=== PATIENT | male | born 1955 | race Caucasian/White ===

== ENCOUNTER 2017-03-14 18:14 | Inpatient (IN) | payer BC ==
--- NOTE | ~2017-03-14 | DS ---
Unit #: [id number] #: [id number] Patient: RACHEL PAEZ [id number] [facility] [address]. [place], [place] [address] [id number] I MR#: [id number] NAME: RACHEL PAEZ ROOM: 549 Age: 61 Sex: M Admission Date: 03/14/2017 : 1955 Discharge Date: 03/18/2017 Attending Physician: Lesa Bernard M.D. Primary Care Physician: Binh Brown M.D. DISCHARGE SUMMARY REASON FOR ADMISSION Status epilepticus. HISTORY OF PRESENT ILLNESS/HOSPITAL COURSE Patient is a 61-year-old male who originally was admitted secondary to continuous seizure [facility]. He was subsequently transferred to [facility] where he was evaluated in the emergency room. He was appropriately treated. The seizure activity ceased and, subsequently, he was placed in the ICU for observation. Consultation was placed with the water chemist who followed patient through hospital course as well as to Dr. Bunn of neurology services. Secondary to prior history of ischemic cardiomyopathy, AICD, as well as ejection fraction noted to be approximately 10%; consultation was also placed to Dr. Acosta of cardiology services. In regards to patient's seizure activity, patient was placed on IV Keppra as well as IV Vimpat while here. These medications will be transitioned to p.o. medications at time of discharge. Review will be currently underway by Dr. Bunn later this morning. In consideration of patient's prior history of systolic heart failure and ejection fraction near 10%, initially he was placed on dobutamine secondary to volume overload. Dr. Acosta continued to follow the patient while in the ICU and subsequently was transitioned to p.o. medications. Please see below for complete details. He has been cleared from a cardiac standpoint for discharge. Overall, this patient's prognosis is poor. His chance of readmission is significantly elevated. He does have a history of end stage cardiomyopathy as well as a history of end stage dementia. Please note, patient did develop ascites. He does have a prior history of cirrhosis as well as end stage liver disease secondary to alcohol abuse. He did undergo paracentesis this hospital admission and approximately 4.3 liters removed. His medications have been adjusted. Please see below for details. FINAL DISCHARGE DIAGNOSES 1. Status epilepticus. 2. Prior history of seizure disorder. 3. Cerebrovascular accident history. 4. Systolic heart failure. 5. Ischemic cardiomyopathy. Unit #: [id number] #: [id number] Patient: RACHEL PAEZ 6. Biventricular heart failure with ejection fraction noted 10%. 7. Status post automatic implantable cardioverter-defibrillator placement in past. 8. Hemiparesis secondary to cerebrovascular accident. 9. Do not resuscitate status noted. 10. Ascites, status post paracentesis. 11. Coronary artery disease, status post stent to left anterior descending, February of 2013. 12. History of paroxysmal atrial fibrillation. DISCHARGE MEDICATIONS 1. Lipitor 80 mg p.o. q.h.s. 2. Keppra 10 mL p.o. b.i.d. 3. Coumadin 3 mg p.o. every day. 4. Digoxin 0.125 mg p.o. every day. 5. Bumex 2 mg p.o. b.i.d. 6. Lisinopril 10 mg p.o. q.h.s. 7. Multivitamin daily. 8. Melatonin 3 mg p.o. q.h.s. 9. Aspirin 81 mg p.o. every day. 10. Aldactone 25 mg p.o. b.i.d. 11. Protonix 40 mg p.o. every day. DISCHARGE CONDITION Stable. DISCHARGE DISPOSITION FDC. PROGNOSIS Long-term prognosis of this patient is poor. Chance for readmission significantly elevated. Dictated by... Cam Jones/maren TD: 03/18/2017 10:41 JOB #: [id number] DISCHARGE SUMMARY Page 1 of 1 X Lesa Bernard MD X DISCHARGE SUMMARY
--- NOTE | ~2017-03-14 | CO ---
Unit #: [id number] #: [id number] Patient: RACHEL GUEVARA [id number] [facility] [address] [facility]. [place], [place] [address] [id number] I MR#: [id number] NAME: RACHEL GUEVARA ROOM: CICCU2 Age: 61 Sex: M Admission Date: 03/14/2017 : 1955 Attending Physician: Romario Jimenez M.D. Primary Care Physician: Binh Brown M.D. Consultation Date: 03/15/2017 CONSULTATION REPORT REASON FOR CONSULTATION History of ischemic cardiomyopathy. HISTORY OF PRESENT ILLNESS This is a 61-year-old, white male with history of having paroxysmal atrial fibrillation, he has been on Coumadin, and coronary artery disease. Had a IA back in 2013 and found occlusion of the distal portion of the ramus intermedius, medical management, and prior to that had a drug-eluting stent placed in the LAD back in 2012. Patient's last echo done in Dr. Davalos's office showed a LV EF of 5% to 10% and his previous LV EF was 10% to 15%. He also has moderate tricuspid regurgitation and moderate pulmonary artery hypertension. He does have a defibrillator. He is a diabetic and hypertension. He had a paracentesis last July. He has a history of seizures and a history of right MCA stroke, which he had some left-sided weakness. Patient is residing in a [facility]. He was brought in by EMS after they were called due to the patient being in status epilepticus. Patient is a poor historian due to his stroke and his condition. According to information, he had been approximately in 30-40 minutes of continuous seizure activity as well as a prolonged seizure activity here in the emergency room. Patient received several medications including IV Keppra and Vimpat as well as Versed. Right now, the patient is somnolent, but he does open his eyes and has with tactile stimulation. Patient was here at [facility] the last time in December 2015. At that point, he was discharged home. I am not sure of the details of why he lives in a chcf. There is no indication of the patient having any signs or symptoms of unstable angina. Cardiology was consulted to assist with management since he has ischemic cardiomyopathy and has chronic systolic congestive heart failure. I just got some information that reports that back in January of this year, the patient had a recurrent stroke and was found by the family poorly responsive. He went to [facility] and was discharged from there to the [facility]. PAST MEDICAL HISTORY 1. Paroxysmal atrial fibrillation. 2. History of DC cardioversion, 02/2014, and history of radiofrequency ablation. 3. Coronary artery disease, status post PCI and stent of the LAD in 02/2013. Last cardiac cath, March 2014, with a non-ST elevation IA showed the left main had 20% stenosis, LAD stent was widely patent with diffuse disease distal to the stent, left circumflex artery 70% stenosis, ramus intermedius branch had a 100% distal with diffuse disease up to 20% proximal and in midvessel, RCA ostial 20% stenosis, Unit #: [id number] #: [id number] Patient: RACHEL GUEVARA in the mid RCA 40% stenosis with ejection fraction of 10% to 15%. The cardiac catheterization was performed by Dr. Gr at [facility] and recommendation was to be on medical therapy. 4. November 2015, transesophageal echocardiogram. Ejection fraction found to be less than 10%, mild mitral regurgitation, mild tricuspid regurgitation, and elevated RVSP 44 mmHg. 5. Last 2D echo with Dr. Davalos's office, 07/2016, showed LV EF of 5% to 10% (previous echo showed 10% to 15%), moderate tricuspid regurgitation, mild pulmonic regurgitation with severely dilated right ventricle, mild mitral regurgitation, moderate ascites, elevated RVSP 50 mmHg, and severe global hypokinesis. 6. Atrial fibrillation/flutter, status post radiofrequency ablation with placement of a flutter line, 10/[address] Galvez at [facility] on continuous anticoagulation. 7. AICD defibrillator placed 2013. 8. Diabetes mellitus type 2. 9. Hypertension. 10. Hyperlipidemia. 11. Chronic anemia, status post EGD 2014 with mild gastritis and colonoscopy was found to be negative. 12. History of right MCA accident and, according to new information, patient had a recurrent stroke in January 2017 and went to [facility]. 13. Reformed smoker. PAST SURGICAL HISTORY 1. Cholecystectomy. 2. Right shoulder fusion. 3. AICD implantation. 4. Radiofrequency ablation for AFib/flutter, 10/2015. 5. Status post PCI and drug-eluting stent to the LAD back in 2012. MEDICATIONS AT THE [facility] 1. Multivitamin 1 tablet p.o. daily. 2. Zyloprim 100 mg p.o. daily. 3. Aspirin 81 mg p.o. daily. 4. Coumadin 3 mg p.o. daily. 5. Lanoxin 0.125 mg p.o. daily. 6. Keppra 10 mg p.o. twice daily. 7. Lipitor 80 mg p.o. at bedtime. 8. Melatonin 3 mg p.o. at bedtime. 9. Metoprolol 25 mg p.o. daily. ALLERGIES Penicillin. SOCIAL HISTORY Patient has been residing at the [facility] since January, according to information, since he had a recurrent stroke at that time. Patient quit smoking more than 30 years ago. He quit drinking several years ago. No illicit drug abuse. FAMILY HISTORY His father from a IA at the age of 78. REVIEW OF SYSTEMS See details in HPI. Unit #: [id number] #: [id number] Patient: RACHEL GUEVARA PHYSICAL EXAMINATION GENERAL APPEARANCE: Mr. Guevara is a 61-year-old, white male. He is in no acute respiratory distress. He opens his eyes with stimulation. He is somewhat somnolent. He has weakness on the left side, but move right extremities with stimulation. VITAL SIGNS: Blood pressure is 112/80, heart rate 106, respirations 18, temperature 97.6, and O2 sats 94% on 2 liters. NECK: Trachea midline. No thyromegaly or lymphadenopathy. Patient has 6 mm JVD. HEART: S1 and S2. Regular rate and rhythm. Soft systolic murmur, left sternal border. LUNGS: Bilateral rales throughout. ABDOMEN: Distended. Tympanic bowel sounds indicating possibly ascites. EXTREMITIES: Pedal pulses are palpable. Pedal edema 1+. DIAGNOSTIC STUDIES LABORATORY: Glucose is 99, BUN 20, creatinine 0.9, EGFR is 92.5, sodium 141, potassium 3.7, chloride 110, CO2 24, calcium is 8.7, total protein 7.4, albumin 4, bili total 2, AST 29, ALT 19, and alk phos is 92. BNP is 2659. Digoxin level 0.2. WBC 10.3, hemoglobin 13.1, hematocrit 42, and platelets are 128. Initial cardiac enzymes: CK MB is less than 1 and troponin less than 0.05. Repeat cardiac enzymes: Troponin is less than 0.03. INR is 1.6. Urine tox screen is negative. Urinalysis shows 3+ protein and 1 urobilinogen, otherwise unremarkable. IMAGING: Chest x-ray on admission shows cardiomegaly with low lung volumes, bronchovascular crowding, and probable atelectasis in the left lung base. CT of the head without contrast shows no acute findings. A large chronic right middle cerebral artery distribution infarction with encephalopathy is stable. CARDIOVASCULAR: EKG shows normal sinus rhythm and sinus tachycardia with a first-degree AV block, left axis deviation, right bundle branch block, septal and inferior infarct, age undetermined, and poor R wave progression. IMPRESSION 1. Status epilepticus seizure activity. 2. Acute on chronic systolic congestive heart failure with LV EF of 5% to 10% on last 2D echo, 07/2016. 3. Ischemic cardiomyopathy with history of PCI and stent to the LAD and last cardiac cath was in 2013, which showed an occlusion of the distal portion of the ramus intermedius and then was treated with medication. 4. Moderate tricuspid regurgitation, severely dilated right ventricle, severe global hypokinesis, mild mitral regurgitation, and elevated RVSP 50 mmHg on last echo, 07/2016. 5. AICD. 6. Hyperlipidemia. 7. Diabetes mellitus type 2. 8. Hypertension. 9. History of radiofrequency ablation for AFib. 10. Chronic anemia. 11. History of a previous right MCA stroke and had a most recent recurrence of a stroke back in January 2017 at [facility]. 12. History of seizure activity in the past. 13. Reformed smoker. Unit #: [id number] #: [id number] Patient: RACHEL GUEVARA PLANS 1. Cardiology consult to assist with evaluation and management. On exam, patient is in fluid overload with acute on chronic systolic congestive heart failure. Will start the patient on IV dobutamine for inotropic therapy at 5 mcg/kg/minute. Also will add diuretics, IV Bumex 2 mg twice daily. 2. On indication on exam with an elevated BNP along with his JVD and his ascites, will diurese and monitor his labs, especially BUN, creatinine, and electrolytes and evaluate if needed. 3. Will have interventional radiology to perform therapeutic paracentesis and will obtain his fluid for testing. 4. Start on a nitrate and also continue on Lanoxin IV b.i.d. for heart rate control. 5. Hold metoprolol and all other p.o. meds at this time and especially hold the beta-kathi while on dobutamine. 6. Cardiac enzymes so far are negative. 7. Neurology is managing patient's seizures, which he most likely will be on multiple drugs to control his seizures. 8. Obtain records from [facility] on last hospitalization in January of this year where it has been told by the family he had another stroke at that time. 9. Continue monitor labs, especially BUN and electrolytes and supplement as needed. Further recommendations pending per Dr. Acosta. Thank you very much for allowing us to assist in his care. Dictated by... Kajal Roldan A.P.R.N. for Cam Sims/maren TD: 03/16/2017 05:46 JOB #: [id number] CONSULTATION REPORT Page 1 of 1 X Kajal Roldan APRN CONSULTATION REPORT
--- NOTE | ~2017-03-14 | CR72 ---
[facility] A Service of [facility] RADIOLOGY TEXT RESULTS PATIENT: RACHEL PAEZ LOCATION: CEDOF : 57 UNIT #: [id number] AGE: [address]: Lesa Bernard MD SEX: M ORDER DR: [id number] [facility] [address]. [place], [place] [address] [id number] MR#: [id number] Acc #: [id number] NAME: RACHEL PAEZ : 1955 SEX: M STUDY DATE/TIME: 03/14/2017 18:46 UNIT: JOSÉ ROOM: STUDY DESCRIPTION: CR Chest Single View Portable Attending Physician: Travis Wong M.D. Ordering Physician: Travis Wong M.D. Primary Care Physician: Binh Brown M.D. MEDICAL IMAGING REPORT This report is preliminary unless electronic signature is present EXAM Frontal chest, 03/14/2017 INDICATIONS Congestion, history of stroke, congestive heart failure and cough symptoms began today. TECHNIQUE Frontal chest compared with 01/05/2016. FINDINGS Cardiac silhouette is enlarged. Redemonstration of a left-sided pacemaker/defibrillator with leads at the right atrial and right ventricular levels. 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 Configuration is unchanged. Lung volumes are low. There is bronchovascular crowding, no dense consolidation or effusion. Probable atelectasis left lung base. No pneumothorax. IMPRESSION 1. Cardiomegaly with low lung volumes and bronchovascular crowding. Probable atelectasis in the left lung base. Dictated by... Juan Carlos Oreilly M.D. THIS IS AN ELECTRONICALLY VERIFIED REPORT Juan Carlos Oreilly M.D. at 03/14/2017 10:51 PM MICHAEL/lacey [facility] A Service of [facility] RADIOLOGY TEXT RESULTS PATIENT: RACHEL PAEZ LOCATION: CEDOF : 57 UNIT #: [id number] AGE: [address]: Lesa Bernard MD SEX: M ORDER DR: TD: 03/14/2017 22:01 JOB #: [id number] MEDICAL IMAGING REPORT Page 1 of 1 COPY
--- NOTE | ~2017-03-14 | EKG ---
PATIENT: RACHEL PAEZ UNIT #: [id number] Ventricular Rate: 100 BPM Atrial Rate: 100 BPM P-R Interval: 212 ms QRS Duration: 118 ms Q-T Interval: 358 ms QTC Calculation(Bezet): 461 ms P Cutler: 71 degrees Calculated R Cutler: -67 degrees Calculated T Cutler: 92 degrees Diagnosis Line: Sinus rhythm with 1st degree A-V block Diagnosis Line: Left axis deviation Diagnosis Line: Right bundle branch block Diagnosis Line: Septal infarct (cited on or before 19-MAR-2014) Diagnosis Line: Inferior infarct , age undetermined Diagnosis Line: Abnormal ECG Diagnosis Line: When compared with ECG of 07-JAN-2016 08:47, Diagnosis Line: Left anterior fascicular block is no longer Diagnosis Line: Present Diagnosis Line: Right bundle branch block has replaced Incomplete Diagnosis Line: right bundle branch block Diagnosis Line: Questionable change in initial forces of Lateral Diagnosis Line: leads Diagnosis Line: Confirmed by AJAY LONDONO MD ([id number]) on Diagnosis Line: 03/15/2017 8:10:23 AM INTERPRETING MD: SPRING AYOUB
--- NOTE | ~2017-03-14 | CT71 ---
[facility] A Service of [facility] RADIOLOGY TEXT RESULTS PATIENT: RACHEL PAEZ LOCATION: CICCU2 CICCU2-09 : [birth year] UNIT #: [id number] AGE: [address]: Romario Jimenez MD SEX: M ORDER DR: [id number] [facility] [address] [place] [address] [facility]. [place], [place] [address] [id number] I MR#: [id number] Acc #: [id number] NAME: RACHEL PAEZ : 1955 SEX: M STUDY DATE/TIME: 03/14/2017 19:55 UNIT: CEDOF ROOM: 40267 STUDY DESCRIPTION: CT Head Wo Contrast Attending Physician: Lesa Bernard M.D. Ordering Physician: Travis Wong M.D. Primary Care Physician: Binh Brown M.D. MEDICAL IMAGING REPORT This report is preliminary unless electronic signature is present EXAM CT brain without contrast HISTORY Seizure today. FINDINGS This CT exam was performed with one or more of the following radiation dose reduction techniques: Automatic exposure control, adjustment of mA and/or kV according to patient size, and iterative reconstruction. CT brain without contrast demonstrates no intracranial hemorrhage, mass or edema. Sensitivity is partly limited by motion. Moderately large chronic infarct in the right MCA distribution with encephalomalacia. IMPRESSION 1. No acute findings. 2. Moderately large chronic right middle cerebral artery distribution infarct with encephalomalacia is stable compared to 01/05/2016 CT. 3. Exam sensitivity is partly limited by motion. Dictated by... Edin Fonseca M.D. THIS IS AN ELECTRONICALLY VERIFIED REPORT Edin Fonseca M.D. at 03/15/2017 11:10 PM DFL/psc TD: 03/14/2017 22:26 JOB #: [id number] [facility] A Service of [facility] RADIOLOGY TEXT RESULTS PATIENT: RACHEL PAEZ LOCATION: CICCUGifty CICCU2-09 : 57 UNIT #: [id number] AGE: [address]: Romario Jimenez MD SEX: M ORDER DR: MEDICAL IMAGING REPORT Page 1 of 1 COPY
--- NOTE | ~2017-03-14 | XA170 ---
[facility] A Service of [facility] RADIOLOGY TEXT RESULTS PATIENT: RACHEL PAEZ [address] [birth year] UNIT #: [id number] AGE: [address]: Lesa Bernard MD SEX: M ORDER DR: [id number] [facility] [address]. [place], [place] [address] [id number] I MR#: [id number] Acc #: [id number] NAME: RACHEL PAEZ : 1955 SEX: M STUDY DATE/TIME: 03/15/2017 12:07 UNIT: CICCU2 ROOM: [facility] STUDY DESCRIPTION: XA Paracentesis W Image Attending Physician: Lesa Bernard M.D. Ordering Physician: Vipin Acosta M.D. Primary Care Physician: Binh Brown M.D. MEDICAL IMAGING REPORT This report is preliminary unless electronic signature is present EXAM Ultrasound-guided paracentesis INDICATION Ascites. PRE-PROCEDURE Risks, benefits, and alternatives to the procedure were explained to the patient's Power of Package Reinspector and a signed, informed consent was obtained. PROCEDURE He is placed supine on the stretcher. Preliminary ultrasound of the abdomen was performed which demonstrated a large volume of ascites. This image is permanently saved and the overlying skin was marked. Patient was prepped and draped in usual sterile fashion. Time-out was performed as per protocol. Skin and subcutaneous tissues was anesthetized with buffered lidocaine and the catheter was placed into the fluid with aspiration of serous material. Catheter was hooked to suction tubing. There was evacuation of a total of 4.3 L of serous material. The catheter was then removed and manual pressure was applied until hemostasis was obtained. IMPRESSION Technically successful ultrasound paracentesis with evacuation 4.3 L of serous material. Ultrasound was used during the procedure and a permanent images were saved. Dictated by... Raquel Sanchez M.D. THIS IS AN ELECTRONICALLY VERIFIED REPORT Raquel Sanchez M.D. at 03/16/2017 5:[address] [facility] A Service of [facility] RADIOLOGY TEXT RESULTS PATIENT: RACHEL PAEZ LOCATION: [facility] CICCU2-09 : [birth year] UNIT #: [id number] AGE: [address]: Lesa Bernard MD SEX: M ORDER DR: Leslie TD: 03/16/2017 09:09 JOB #: [id number] MEDICAL IMAGING REPORT Page 1 of 1 COPY
--- NOTE | ~2017-03-14 | CO ---
Unit #: [id number] #: [id number] Patient: RACHEL PAEZ [id number] [facility] [address]. [place], [place] [address] [id number] I MR#: [id number] NAME: RACHEL PAEZ ROOM: CICCU2 Age: 61 Sex: M Admission Date: 03/14/2017 : 1955 Attending Physician: Romario Jimenez M.D. Primary Care Physician: Binh Brown M.D. Requesting Physician: Lesa Bernard M.D. Consultation Date: 03/15/2017 CONSULTATION REPORT REASON FOR CONSULTATION Status epilepticus. PATIENT IDENTIFICATION This is a 61-year-old unknown handedness, male evaluated in ICU 9 at [facility]. SOURCE OF INFORMATION Medical record. HISTORY OF PRESENT ILLNESS This is a 61-year-old, unknown handedness, male with past medical history of CVA and seizure disorder, who presents to [facility] from [facility] where he resides with prolonged seizure activity that was abated in the ED with Versed, Keppra and Vimpat. He was loaded with 2 grams of Keppra and 100 mg of Vimpat. He takes Keppra at the nursing facility and was restarted on 500 b.i.d. but looking at his records from the nursing facility, it seems as though he actually takes 1000 mg b.i.d. as he takes 10 mL b.i.d. and there is 100 mg per mL. He was loaded on Vimpat and we will resume that as well given that he came in with prolonged seizure and possible status. He has been afebrile here. He appears to be confused, poorly cooperative, but that is reported as his baseline from the long term facility. His CT of the head is negative for any acute intracranial abnormalities. It shows a moderately large old right MCA CVA. According to the nursing staff, he was seen apparently at [facility] in January of this year, for neurologic problems, though details are unclear. According to the son, he was apparently independent prior to that. Those records are pending. No report of any new fever or chills or changes otherwise. He is being seen by Cardiology for ascites and CHF. The patient is a poor historian, unable to provide any details or contribute to the review of systems. PAST MEDICAL HISTORY 1. Prior right MCA CVA, details unknown. He does appear to have chronic left hemiplegia. 2. CAD. 3. Myocardial infarction followed by [facility] Cardiology. 4. Hypertension. 5. Atrial fibrillation on anticoagulation with warfarin. 6. CHF. 7. Cholecystectomy. 8. Neck cervical fusion. 9. Right shoulder surgery. 10. Cardiac stents. Unit #: [id number] #: [id number] Patient: RACHEL PAEZ 11. Permanent pacemaker. 12. Cardiac ablation. ALLERGIES Penicillin. HOME MEDICATIONS As per the medication reconciliation include: 1. Multivitamin one tab p.o. daily. 2. Zyloprim 100 mg p.o. daily. 3. Aspirin 81 mg p.o. daily. 4. Warfarin 3 mg p.o. daily. 5. Lanoxin 0.125 mg p.o. daily. 6. Keppra 1000 mg b.i.d. 7. Lipitor 80 mg p.o. h.s. 8. Melatonin 3 mg p.o. h.s. 9. Metoprolol 25 mg p.o. daily. FAMILY HISTORY Unknown. SOCIAL HISTORY The patient resides at [facility]. No report of illicit drug use, alcohol abuse, or tobacco use at this time. Past use is unknown. REVIEW OF SYSTEMS Unable to obtain from the patient given his mental status. PHYSICAL EXAMINATION VITAL SIGNS: Temperature 97.6, he has been afebrile, pulse 105, respirations 16, blood pressure 133/94, blood pressure in the ER on arrival was 120/89, oxygen saturation 91%. Height 5 feet 7 inches, weight 143 pounds. NEUROLOGIC: The patient is arousable but confused. He is not oriented. He answers questions minimally but is confused. He is poorly cooperative with commands. He does follow commands at times but he is not consistent. His speech is not clear. CRANIAL NERVES: He responds to threats in the primary visual moreno but exam is very limited. Eyes are conjugate without ptosis or nystagmus. Pupils are 3+ brisk. Extraocular movements appear to be intact but exam is difficult. No nystagmus seen. Unable to fully assess sensation to face and scalp or strength of muscles of facial expression. Hearing appears to be intact to voice. Unable to assess tongue, uvula or palate. Head turning is unremarkable spontaneously. Neck is supple. MOTOR: He appears to have left hemiplegia which is reported as chronic. He does have some use of the left side spontaneously but does not appear to lift beyond gravity and is certainly weaker than the right. He does follow commands on the right and consistently appears to have good strength 5/5 in the upper extremity. Unable to fully assess in the lower extremity, fully as he is not fully cooperative but he does move the right lower extremity spontaneously against gravity. SENSORY: Unable to fully assess. He does respond to noxious stimuli bilaterally. GAIT AND ROMBERG: Deferred. REFLEXES: Unable to elicit. Toes are upgoing on the left, equivocal on the right. COORDINATION: Unable to assess. No tremors or myoclonus or seizure activity seen at this time. Unit #: [id number] #: [id number] Patient: RACHEL PAEZ DIAGNOSTIC STUDIES LABORATORY: BNP 2659. Troponin less than 0.03. BMP unremarkable. PTT 33.1. White blood cell count 10.3, hemoglobin 13.1, hematocrit 42, platelet count 128. Urine drug screen unremarkable. Urinalysis 3+ protein, negative for bacteria; culture not indicated. Digoxin level 0.2. PT 17.4, INR 1.6. Initial white count 9.6. Initial glucose 126. IMAGING: CT of the head without contrast on 03/14/2017. Impression per radiology report, no acute findings. Moderately large chronic right middle cerebral artery territory distribution infarct with encephalomalacia, stable compared to 01/05/2016. CT limited by motion. Chest x-ray, portable single view, 03/14/2017. Impression per radiology report cardiomegaly with low lung volumes and bronchovascular crowding. Probable atelectasis in left lung base. CARDIOVASCULAR: EKG sinus rhythm with first-degree AV block, right bundle branch block. IMPRESSION 1. Prolonged seizure activity, abated with treatment in the emergency department. 2. History of seizure disorder. 3. History of right middle cerebral artery ischemic stroke, details unclear. Records from [facility] pending. 4. Congestive heart failure. 5. Cardiomyopathy. 6. Ascites secondary to #4. PLAN 1. [facility] records are pending. We will resume the patient on home dose of Keppra and add Vimpat IV and I will monitor closely for any following seizure activity. Nothing to suggest new or worsening ischemic stroke and patient is unable to undergo MRI. 2. From a neurologic standpoint, the patient may be bridge for anticoagulation as his INR is subtherapeutic and he does have chronic atrial fibrillation. Will discussion with Cardiology. Further recommendations to be made pending workup and further clinical course. 3. Nothing at this time to suggest [employer] infection or new primary neurologic event but certainly will follow closely and further recommendations pending evaluation by Dr. Bunn. Will continue to monitor seizure activity closely. Please call for any questions or issues. We thank you very much for allowing us to assist in the care of this patient. Dictated by... Radha Warner A.P.R.N. for Hever Bunn M.D. [facility] Unit #: [id number] #: [id number] Patient: RACHEL PAEZ TD: 03/15/2017 18:18 JOB #: [id number] CONSULTATION REPORT Page 1 of 1 X Radha Warner [employer] X CONSULTATION REPORT
--- NOTE | ~2017-03-14 | HP ---
Unit #: [id number] #: [id number] Patient: RACHEL PAEZ [id number] [address] [address] [id number] I MR#: [id number] NAME: RACHEL PAEZ ROOM: 51029 Age: 61 Sex: M Admission Date: 03/14/2017 : 1955 Attending Physician: Lesa Bernard M.D. Primary Care Physician: Binh Brown M.D. HISTORY AND PHYSICAL REASON FOR ADMISSION Status epilepticus. HISTORY OF PRESENT ILLNESS The patient is a 61-year-old male who at the present time is currently sedated and very somnolent. Apparently, he has had approximately 30 to 40 minutes of continuous seizure activity as well as a prolonged seizure activity here in the emergency room. He has received, since that time, several medications including Keppra, Vimpat as well as versed. At the present time, he is somnolent. There are no family members who are present at bedside. Apparently, he resides at a local care home per report. I don't have very many details in regards to his past history. Through chart review, I see previous hospital admission in December 2015, and at that point in time he was discharged home. PAST MEDICAL HISTORY Through chart review: 1. Prior history of CVA. 2. Coronary artery disease. 3. Prior history of myocardial infarction, followed by Dr. Acosta. 4. Hypertension. 5. Atrial fibrillation. 6. Left sided hemiparesis. 7. Questionable heart failure, details unclear. PAST SURGICAL HISTORY 1. Cholecystectomy. 2. Neck/cervical fusion. 3. Right shoulder surgery. 4. Cardiac stents. 5. Pacemaker placement. 6. Cardiac ablation. HOME MEDICATIONS 1. Allopurinol. 2. Aspirin. 3. Coumadin. 4. Digoxin. 5. Keppra. 6. Lipitor. 7. Melatonin. Unit #: [id number] #: [id number] Patient: RACHEL PAEZ 8. Metoprolol. ALLERGIES Penicillin. SOCIAL HISTORY Per report, the patient resides at a care home, [facility]. No drug abuse noted. No illicit drug use noted. No alcohol use noted currently. I do not know about in the past. REVIEW OF SYSTEMS I believe the patient currently has aphasia secondary to prior history of CVA but, again, at the present time he has received versed. He is currently somnolent. I am not sure if he has dysphagia as well. He does have a prior history of frontal and executive functional deficits following the CVA. Per chart review - muscle weakness, seizure disorder, chronic kidney disease, and I have elicited most other review of systems through chart review. PHYSICAL EXAMINATION VITAL SIGNS: Pulse 103, respirations 16, blood pressure 120/89. GENERAL APPEARANCE: The patient is a 61-year-old, frail male in no acute distress. HEAD EXAM: Atraumatic. EAR EXAM: Tympanic membranes do not reveal any erythema or injection. NECK EXAM: Supple. CVS: S1, S2, tachycardic without murmur. RESPIRATORY: Coarse rhonchi are noted bilaterally. GI/ABDOMEN: Nontender, nondistended. EXTREMITIES: Lower extremity exam - no evidence of any lower extremity edema. NEUROLOGICAL EXAM: Unable to do. PSYCHIATRIC EXAM: Unable to be performed. ER COURSE Please see above. Patient received Vimpat, Keppra, as well as versed. DIAGNOSTIC STUDIES LABORATORY: Initial laboratory studies show a digoxin level of 0.2. BMP shows creatinine of 1.1. Initial urinalysis - 3+ protein, urobilinogen. CBC shows hemoglobin 13.7, blood glucose as noted 126. INITIAL ADMISSION DIAGNOSES 1. Status epilepticus, per report. 2. Prior history of seizure disorder following cerebrovascular accident. 3. Left sided hemiparesis, per report. 4. Chronic aphasia. 5. Questionable dysphagia. 6. Generalized immobility syndrome. 7. Heart failure, details unclear. 8. Atrial fibrillation/atrial flutter. 9. Hyperlipidemia. 10. Idiopathic gout. 11. Chronic kidney disease, details unclear: Baseline creatinine Unit #: [id number] #: [id number] Patient: RACHEL PAEZ unknown. 12. Ischemic cardiomyopathy, again with undefined ejection fraction. PLAN Admission, ICU. Neurology consult, parent partner consult. Seizure medications as per neurology. We will ascertain home medication list. Routine laboratory studies. Try to obtain previous records in regards to his overall quality of life as well as level of functioning. At this point in time, I am not able to ascertain these details given his current condition. Once his seizures have been more stable, further hospital course will be determined. Certainly infectious etiology will be ruled out. Per report, I see patient is DNR through paperwork as provided by Alia Alanis. Dictated by Cam Jones/negro TD: 03/15/2017 05:20 JOB #: [id number] HISTORY AND PHYSICAL Page 1 of 1 X Lesa Bernard MD X HISTORY AND PHYSICAL
--- NOTE | ~2017-03-14 | CT4 ---
[facility] A Service of [facility] RADIOLOGY TEXT RESULTS PATIENT: RACHEL PAEZ LOCATION: CICCU2 CICCU12-03 : [birth year] UNIT #: [id number] AGE: [address]: Lesa Bernard MD SEX: M ORDER DR: [id number] [place] [id number] [facility]. [place], [place] [address] [id number] I MR#: [id number] Acc #: [id number] NAME: RACHEL PAEZ : 1955 SEX: M STUDY DATE/TIME: 03/16/2017 21:35 UNIT: [facility] ROOM: [facility] STUDY DESCRIPTION: CT Abd and Pelv Wo Cont Attending Physician: Lesa Bernard M.D. Ordering Physician: Lesa Bernard M.D. Primary Care Physician: Binh Brown M.D. MEDICAL IMAGING REPORT This report is preliminary unless electronic signature is present EXAM CT of abdomen and pelvis. INDICATION Liver and pancreatic disease. Respiratory failure. Shortness of air. Generalized abdominal pain and ascites. TECHNIQUE CT of the abdomen and pelvis without contrast. Coronal and sagittal reconstructions were obtained. This CT exam was performed with one or more of the following radiation dose reduction techniques: automatic exposure control, adjustment of mA and/or kV according to patient size, and iterative reconstruction. COMPARISON Concurrent CT chest dated 03/16/2017 and without. FINDINGS Please refer to the separately dictated report for details on the chest. ABDOMEN: The liver is cirrhotic. Gallbladder is surgically absent. There is mild atrophy of the pancreas. The spleen and adrenal glands are within normal limits. Noncontrast evaluation of the kidneys are within normal limits. No hydronephrosis. There is moderate volume of ascites. The bowel is not dilated. The appendix is normal. There are a few left-sided colonic diverticula. No diverticulitis. The abdominal aorta has diffuse atherosclerotic disease, however, there is no aneurysm. [facility] A Service of [facility] RADIOLOGY TEXT RESULTS PATIENT: RACHEL PAEZ LOCATION: CICCU2 CICCU2 : [birth year] UNIT #: [id number] AGE: [address]: Lesa Bernard MD SEX: M ORDER DR: PELVIS: The Giraldo catheter decompresses the bladder. There is moderate ascites. No enlarged pelvic or inguinal lymph nodes. No acute osseous abnormalities. IMPRESSION 1. Cirrhosis with evidence of portal hypertension. 2. Moderate ascites. 3. Please refer to the separately dictated report for details on the chest. Dictated by... Trace Vazquez M.D. THIS IS AN ELECTRONICALLY VERIFIED REPORT Trace Vazquez M.D. at 03/17/2017 2:27 AM ABRAHAM/doyle TD: 03/17/2017 02:22 JOB #: [id number] MEDICAL IMAGING REPORT Page 1 of 1 COPY
--- NOTE | ~2017-03-14 | CT57 ---
[facility] A Service of [facility] RADIOLOGY TEXT RESULTS PATIENT: RACHEL PAEZ LOCATION: [address] : [birth year] UNIT #: [id number] AGE: [address]: Lesa Bernard MD SEX: M ORDER DR: [id number] [place] [id number]. [place], [place] [address] [id number] I MR#: [id number] Acc #: [id number] NAME: RACHEL PAEZ : 1955 SEX: M STUDY DATE/TIME: 03/16/2017 21:32 UNIT: [facility] ROOM: [facility] STUDY DESCRIPTION: CT Chest Wo Cont Attending Physician: Lesa Bernard M.D. Ordering Physician: Lesa Bernard M.D. Primary Care Physician: Binh Brown M.D. MEDICAL IMAGING REPORT This report is preliminary unless electronic signature is present EXAM CT chest without contrast. HISTORY Pneumonia, shortness of air, and respiratory failure for [address] exam was performed with one or more of the following radiation dose reduction techniques: automatic exposure control, adjustment of mA and/or kV according to patient size, and iterative reconstruction. FINDINGS CT chest without contrast demonstrates very small bilateral pleural effusions. Moderate cardiac enlargement. Small pericardial effusion. Mild multifocal subsegmental atelectasis or scarring in the bilateral upper lobes and posterior lower lobes. No airspace infiltrates. Subcentimeter calcified granuloma in the medial right lung apex is incidentally noted. Incidental calcified mediastinal nodes. IMPRESSION 1. Very small bilateral pleural effusions. 2. Mild multifocal subsegmental atelectasis or scarring bilaterally. No airspace infiltrates. 3. No adenopathy. 4. Moderate cardiac enlargement and very small pericardial effusion. Dictated by... Edin Fonseca M.D. THIS IS AN ELECTRONICALLY VERIFIED REPORT Edin Fonseca M.D. at 03/17/2017 4:09 PM [facility] RADIOLOGY TEXT RESULTS PATIENT: RACHEL PAEZ LOCATION: CICCU2 CICCU2-09 : 57 UNIT #: [id number] AGE: [address]: Lesa Bernard MD SEX: M ORDER DR: NEWTON/doyle TD: 03/17/2017 02:25 JOB #: [id number] MEDICAL IMAGING REPORT Page 1 of 1 COPY
--- NOTE | ~2017-03-14 | CO ---
Unit #: [id number] #: [id number] Patient: RACHEL PAEZ [id number] [address] [address] [id number] I MR#: [id number] NAME: RACHEL PAEZ ROOM: CIC2 Age: 61 Sex: M Admission Date: 03/14/2017 : 1955 Attending Physician: Romario Jimenez M.D. Primary Care Physician: Binh Brown M.D. CONSULTATION REPORT REASON FOR CONSULTATION Critical care management. CHIEF COMPLAINT Altered mental status. HISTORY OF PRESENT ILLNESS A 61-year-old male presented with a complaint of somnolence and was found to have seizure-like activity prolonged in the emergency room and was given Keppra and Vimpat and treated. Currently, very lethargic, unarousable. Patient is a DNR as per patient's nurse taking care of him now. REVIEW OF SYSTEMS Unobtainable. PAST MEDICAL HISTORY 1. History of CVA. 2. Coronary artery disease. 3. Hypertension. 4. Atrial fibrillation. 5. Left-sided hemiparesis. 6. Questionable heart failure. PAST SURGICAL HISTORY 1. Cholecystectomy. 2. Neck fusion. 3. Right shoulder surgery. 4. Cardiac stent. 5. Pacemaker placement. 6. Cardiac ablation. HOME MEDICATIONS 1. Allopurinol. 2. Aspirin. 3. Coumadin. 4. Digoxin. 5. Keppra. 6. Lipitor. 7. Melatonin. 8. Metoprolol. ALLERGIES Penicillin. Unit #: [id number] #: [id number] Patient: RACHEL PAEZ SOCIAL HISTORY Positive for nonsmoker. FAMILY HISTORY Unobtainable. PHYSICAL EXAMINATION VITAL SIGNS: Temperature is 98, pulse is 120, blood pressure is currently 119/88. NEUROLOGIC: Somnolent, sedated. CARDIOVASCULAR: S1 plus S2. RESPIRATORY: Bilateral air entry. Bilateral rhonchi. GASTROINTESTINAL: Nondistended. Bowel sounds positive. Positive ascites. EXTREMITIES: Positive edema. DIAGNOSTIC STUDIES Labs and imaging have been reviewed. ASSESSMENT 1. Altered mental status. 2. Questionable seizure-like activity. 3. Left-sided hemiparesis. 4. Chronic aphasia and dysphagia. 5. Atrial fibrillation. 6. Cardiomyopathy. PLAN Plan is to continue patient on oxygen, bronchodilator, inotropes, antiepileptic, EEG. Will continue to monitor. Please see orders for detailed plan. Thank you very much for this consultation. Dictated by... Cam Hernandez TD: 03/15/2017 15:48 JOB #: [id number] CONSULTATION REPORT Page 1 of 1 X Hari Stephen MD X CONSULTATION REPORT
--- NOTE | ~2017-03-14 | CR72 ---
[facility] A Service of [facility] RADIOLOGY TEXT RESULTS PATIENT: RACHEL PAEZ LOCATION: [facility] 549-01 : [birth year] UNIT #: [id number] AGE: [address]: Lesa Bernard MD SEX: M ORDER DR: [id number] [facility] [address] [facility]. [place], [place] [address] [id number] I MR#: [id number] Acc #: [id number] NAME: RACHEL PAEZ : 1955 SEX: M STUDY DATE/TIME: 03/16/2017 4:02 UNIT: [facility] ROOM: [facility] STUDY DESCRIPTION: CR Chest Single View Portable Attending Physician: Lesa Bernard M.D. Ordering Physician: Hari Stephen M.D. Primary Care Physician: Binh Brown M.D. MEDICAL IMAGING REPORT This report is preliminary unless electronic signature is present EXAM Single view chest INDICATIONS Cough and weakness. FINDINGS Single portable AP view of the chest compared to 03/14/2017. The heart is enlarged. Lung volumes have improved. No new pulmonary opacities. No pneumothorax. IMPRESSION Improved inspiration. No new findings. Dictated by... Trace Vazquez M.D. THIS IS AN ELECTRONICALLY VERIFIED REPORT Trace Vazquez M.D. at 03/18/2017 12:22 AM ABRAHAM/jennifer TD: 03/16/2017 07:51 JOB #: [id number] MEDICAL IMAGING REPORT Page 1 of 1 COPY
[~2017-03-14 18:14] MED LIST: ALDACTONE25 MG PO; ALLEGRA PO; ALLOPURINOL300 MG PO; ASPIRIN EC81 M1 PO; ASPIRIN PO; BUMEX1 MG PO; CARVEDILOL3.125 MG PO; COMBIVENT U/D3 M2 INH; CORDARONE200 M1 PO; DIGITEK125 MC1 PO; DIGOX0.125 MG PO; EFFIENT10 MG PO; ELIQUIS5 MG PO; FOSINOPRIL PO; FUROSEMIDE40 MG PO; JANUMET XR 50-1 EACH PO; KCL PO; LEVOCETIRIZINE D5 MG PO; MAG-OX 400400 M1 PO; MEGACE ES625 MG/5 M PO; NEURONTIN100 MG PO; NITROSTAT0.4 MG SL; OMEPRAZOLE40 M1 PO; XYZAL5 MG PO; ZOLOFT100 MG PO; ZYLOPRIM100 MG PO
[2017-03-14 19:03] LABS: BASOPHIL# 0.1 X10e3 (0-0.3); BASOPHIL% 0.6 % (0-2.5); DIFF IND NO; EOSINOPHIL# 0.1 X10e3 (0-0.7); EOSINOPHIL% 1.3 % (0.0-7.0); HEMATOCRIT 43.4 % (38.0-50.0); HEMOGLOBIN 13.7 gm/dL (13.0-16.0); LYMPHOCYTE# 1.1 X10e3 (1.0-3.5); LYMPHOCYTE% 11.8 % (17.0-45.0); MEAN CELL VOLUME 80.5 FL (83-96); MEAN CORPUSCULAR HEMOGLOBIN 25.4 PG (28-34); MEAN CORPUSCULAR HGB CONC 31.5 g/dL (30-36); MEAN PLATELET VOLUME 9.8 FL (6.5-11.5); MONOCYTE# 0.7 X10e3 (0-1.0); MONOCYTE% 7.3 % (3.0-12.0); NEUTROPHIL# 7.6 X10e3 (1.5-7.1); PLATELET COUNT 141 X10e3 (140-420); RED CELL DISTRIBUTION WIDTH 18.2 % (11.0-15.5); WHITE BLOOD COUNT 9.6 X10e3 (4.0-10.5)
[2017-03-14 19:11] LABS: INR 1.6; PROTHROMBIN TIME (PATIENT) 17.4 SECONDS (9.6-11.5)
[2017-03-14 19:12] LABS: URINE SOURCE CLEAN CATCH
[2017-03-14 19:17] LABS: URINE APPEARANCE CLEAR; URINE BLOOD NEG (NEG); URINE COLOR DK YELLOW; URINE GLUCOSE NEG (NEG); URINE KETONE NEG (NEG); URINE LEUKOCYTE ESTERASE NEG (NEG); URINE NITRATE NEG (NEG); URINE PROTEIN 3+ (NEG); URINE SPECIFIC GRAVITY 1.029 (1.003-1.035)
[2017-03-14 19:19] LABS: BILIRUBIN, DIRECT 0.7 mg/dL (0.0-0.2); BILIRUBIN,INDIRECT 1.3 mg/dL (0.0-0.9); BUN/CREATININE RATIO 20.9; CALCIUM SERUM 8.8 mg/dL (8.4-10.2); CREATININE SERUM 1.1 mg/dL (0.6-1.4); GLOM FILT RATE Estimated 72.6 mL/min (>60); POTASSIUM 3.8 mmol/L (3.5-5.1); PROTEIN TOTAL SERUM 7.4 g/dL (6.0-8.3)
[2017-03-14 19:20] LABS: URBCS1 AUWI 0-2 /[HPF] (0-2); URINE BACTERIA AUWI NEG (NEGATIVE); URINE SQUAMOUS EPITHELIAL CELL OCC /[HPF]; UWBCS1 AUWI 0-2 (0-5)
[2017-03-14 19:36] LABS: CULTURE INDICATED? NO
[2017-03-14 19:37] LABS: URINE BILIRUBIN NEG (NEG)
[2017-03-14 19:39] LABS: URINE SPERM PRESENT
[2017-03-14 23:08] LABS: AMPHETAMINE NEG (NEG); BARBITURATES NEG (NEG); BENZODIAZEPINES NEG (NEG); COCAINE NEG (NEG); MARIJUANA NEG (NEG); OPIATES NEG (NEG); TRICYCLIC ANTIDEPRESSANTS NEG (NEG); U METHADONE NEG (NEG)
[2017-03-15] MEDS ORDERED: ZYLOPRIM100 MG PO (03:57)
[2017-03-15] MEDS ORDERED: MULTI VITAMIN1 EACH PO (03:57)
[2017-03-15] MEDS ORDERED: COUMADIN PO (03:58)
[2017-03-15] MEDS ORDERED: ASPIRIN EC81 M1 PO (03:58)
[2017-03-15] MEDS ORDERED: COUMADIN3 MG PO (03:59)
[2017-03-15] MEDS ORDERED: LANOXIN125 MCG PO (03:59)
[2017-03-15] MEDS ORDERED: KEPPRA100 MG/ML PO (04:00)
[2017-03-15] MEDS ORDERED: LIPITOR80 MG PO (04:01)
[2017-03-15] MEDS ORDERED: MELATIN3 MG PO (04:01)
[2017-03-15] MEDS ORDERED: METOPROLOL TAR25 MG PO (04:02)
[2017-03-15 10:18] LABS: BASOPHIL# 0.1 X10e3 (0-0.3); BASOPHIL% 0.7 % (0-2.5); EOSINOPHIL# 0.1 X10e3 (0-0.7); EOSINOPHIL% 0.9 % (0.0-7.0); HEMOGLOBIN 13.1 gm/dL (13.0-16.0); LYMPHOCYTE# 0.9 X10e3 (1.0-3.5); LYMPHOCYTE% 8.3 % (17.0-45.0); MEAN CELL VOLUME 80.6 FL (83-96); MEAN CORPUSCULAR HEMOGLOBIN 25.1 PG (28-34); MEAN CORPUSCULAR HGB CONC 31.2 g/dL (30-36); MEAN PLATELET VOLUME 10.2 FL (6.5-11.5); MONOCYTE# 0.6 X10e3 (0-1.0); MONOCYTE% 5.5 % (3.0-12.0); NEUTROPHIL# 8.7 X10e3 (1.5-7.1); NEUTROPHIL% 84.6 % (40-75); PLATELET COUNT 128 X10e3 (140-420); RED BLOOD COUNT 5.22 X10e (3.90-5.60); RED CELL DISTRIBUTION WIDTH 18.3 % (11.0-15.5); WHITE BLOOD COUNT 10.3 X10e3 (4.0-10.5)
[2017-03-15 10:20] LABS: DIFF IND NO
[2017-03-15 10:22] LABS: BUN/CREATININE RATIO 22.22; CALCIUM SERUM 8.7 mg/dL (8.4-10.2); CREATININE SERUM 0.9 mg/dL (0.6-1.4); GLOM FILT RATE Estimated 92.5 mL/min (>60); POTASSIUM 3.7 mmol/L (3.5-5.1)
[2017-03-15 15:52] LABS: ARTERIAL BLD GAS O2 SATURATION 98.7 % (90.0-100.0); ARTERIAL BLOOD GAS CARBOXY HB 0.9 %sat (0.0-9.0); ARTERIAL BLOOD GAS MET HB 0.5 %sat (0.0-2.0); ARTERIAL BLOOD GAS PCO2 36.8 mmHg (35.0-45.0)
[2017-03-15 15:54] LABS: ARTERIAL BLOOD GAS ALLEN TEST NORMAL; ARTERIAL BLOOD GAS ART SITE RIGHT RADIAL; ARTERIAL BLOOD GAS DELIVERY NASAL CANNULA; ARTERIAL BLOOD GAS LITER FLOW 4.5; ARTERIAL DRAW? YES
[2017-03-15 16:33] LABS: PROTEIN, BODY FLUID 3.6 gm/dL
[2017-03-15 17:19] LABS: BODY FLUID SOURCE ASCITES
[2017-03-15 17:20] LABS: BF TOTAL NUCLEATED CELL COUNT 330 CMM (0-100); BODY FLUID APPEARANCE HAZY; BODY FLUID RBC 930 CMM
[2017-03-16 04:00] LABS: ARTERIAL BLD GAS O2 SATURATION 98.5 % (90.0-100.0); ARTERIAL BLOOD GAS CARBOXY HB 1.2 %sat (0.0-9.0); ARTERIAL BLOOD GAS HCO3 25.2 mmol/L; ARTERIAL BLOOD GAS MET HB 0.4 %sat (0.0-2.0); ARTERIAL BLOOD GAS PCO2 33.1 mmHg (35.0-45.0); ARTERIAL BLOOD GAS pH 7.489 (7.350-7.450)
[2017-03-16 04:06] LABS: ARTERIAL BLOOD GAS ALLEN TEST NORMAL; ARTERIAL BLOOD GAS ART SITE LEFT RADIAL; ARTERIAL DRAW? YES
[2017-03-16 04:07] LABS: ARTERIAL BLOOD GAS DELIVERY NASAL CANNULA
[2017-03-16 04:51] LABS: BASOPHIL% 0.3 % (0-2.5); EOSINOPHIL% 0.4 % (0.0-7.0); HEMATOCRIT 37.4 % (38.0-50.0); HEMOGLOBIN 11.7 gm/dL (13.0-16.0); LYMPHOCYTE# 0.5 X10e3 (1.0-3.5); LYMPHOCYTE% 7.2 % (17.0-45.0); MEAN CELL VOLUME 80.2 FL (83-96); MEAN CORPUSCULAR HEMOGLOBIN 25.1 PG (28-34); MEAN CORPUSCULAR HGB CONC 31.3 g/dL (30-36); MEAN PLATELET VOLUME 9.5 FL (6.5-11.5); MONOCYTE# 0.4 X10e3 (0-1.0); MONOCYTE% 5.7 % (3.0-12.0); NEUTROPHIL# 6.4 X10e3 (1.5-7.1); NEUTROPHIL% 86.4 % (40-75); PLATELET COUNT 99 X10e3 (140-420); RED BLOOD COUNT 4.66 X10e (3.90-5.60); RED CELL DISTRIBUTION WIDTH 18.3 % (11.0-15.5); WHITE BLOOD COUNT 7.4 X10e3 (4.0-10.5)
[2017-03-16 04:52] LABS: DIFF IND NO
[2017-03-16 05:06] LABS: ALBUMIN SERUM 3.4 g/dL (3.5-5.0); BILIRUBIN,TOTAL 2.3 mg/dL (0.2-2.0); BUN/CREATININE RATIO 13.33; CALCIUM SERUM 8.4 mg/dL (8.4-10.2); CREATININE SERUM 1.2 mg/dL (0.6-1.4); GLOM FILT RATE Estimated 65.4 mL/min (>60); MAGNESIUM 1.8 mg/dL (1.6-3.0); POTASSIUM 3.8 mmol/L (3.5-5.1); PROTEIN TOTAL SERUM 6.2 g/dL (6.0-8.3)
[2017-03-17 05:22] LABS: INR 1.5; PROTHROMBIN TIME (PATIENT) 16.1 SECONDS (9.6-11.5)
[2017-03-17 05:30] LABS: BASOPHIL% 0.5 % (0-2.5); EOSINOPHIL# 0.1 X10e3 (0-0.7); EOSINOPHIL% 0.9 % (0.0-7.0); HEMATOCRIT 40.6 % (38.0-50.0); HEMOGLOBIN 12.8 gm/dL (13.0-16.0); LYMPHOCYTE# 0.6 X10e3 (1.0-3.5); LYMPHOCYTE% 9.4 % (17.0-45.0); MEAN CELL VOLUME 79.5 FL (83-96); MEAN CORPUSCULAR HGB CONC 31.5 g/dL (30-36); MEAN PLATELET VOLUME 10.8 FL (6.5-11.5); MONOCYTE# 0.4 X10e3 (0-1.0); MONOCYTE% 6.2 % (3.0-12.0); NEUTROPHIL# 5.6 X10e3 (1.5-7.1); PLATELET COUNT 111 X10e3 (140-420); RED CELL DISTRIBUTION WIDTH 18.1 % (11.0-15.5); WHITE BLOOD COUNT 6.7 X10e3 (4.0-10.5)
[2017-03-17 05:35] LABS: DIFF IND NO
[2017-03-17 06:08] LABS: ALBUMIN SERUM 3.3 g/dL (3.5-5.0); BILIRUBIN,TOTAL 3.4 mg/dL (0.2-2.0); CALCIUM SERUM 8.6 mg/dL (8.4-10.2); GLOM FILT RATE Estimated 81.5 mL/min (>60); POTASSIUM 4.1 mmol/L (3.5-5.1)
[2017-03-18 06:40] LABS: BASOPHIL% 0.5 % (0-2.5); EOSINOPHIL# 0.2 X10e3 (0-0.7); EOSINOPHIL% 1.8 % (0.0-7.0); HEMATOCRIT 46.9 % (38.0-50.0); HEMOGLOBIN 14.7 gm/dL (13.0-16.0); LYMPHOCYTE# 0.9 X10e3 (1.0-3.5); LYMPHOCYTE% 11.3 % (17.0-45.0); MEAN CELL VOLUME 79.4 FL (83-96); MEAN CORPUSCULAR HEMOGLOBIN 24.8 PG (28-34); MEAN CORPUSCULAR HGB CONC 31.3 g/dL (30-36); MEAN PLATELET VOLUME 10.3 FL (6.5-11.5); MONOCYTE# 0.6 X10e3 (0-1.0); MONOCYTE% 7.6 % (3.0-12.0); NEUTROPHIL# 6.6 X10e3 (1.5-7.1); NEUTROPHIL% 78.8 % (40-75); PLATELET COUNT 152 X10e3 (140-420); RED CELL DISTRIBUTION WIDTH 19.3 % (11.0-15.5); WHITE BLOOD COUNT 8.4 X10e3 (4.0-10.5)
[2017-03-18 06:56] LABS: DIFF IND NO
[2017-03-18 08:56] LABS: ALBUMIN SERUM 3.5 g/dL (3.5-5.0); BILIRUBIN,TOTAL 2.6 mg/dL (0.2-2.0); CALCIUM SERUM 8.8 mg/dL (8.4-10.2); GLOM FILT RATE Estimated 81.5 mL/min (>60); POTASSIUM 3.8 mmol/L (3.5-5.1); PROTEIN TOTAL SERUM 6.4 g/dL (6.0-8.3)
== END 2017-03-18 12:24 | DRG 100 ==
LOC: CED 18:14 → CEDOF 22:00 → CED 22:13 → CEDOF 22:13 → CICCU2 03-15 07:39 → CEDOF 03-15 07:39 → CICCU2 03-15 07:41 → C5B 03-17 16:18
PROVIDERS: Emergency Medicine; Family Medicine; Internal Medicine; Nurse Practitioner
PROC: 0W9G30Z Drainage of Peritoneal Cavity with Drainage Device, Percutaneous Approach (ICD-10-PCS; principal; 2017-03-15)
DX: G40.101 Localization-related (focal) (partial) symptomatic epilepsy and epileptic syndromes with simple partial seizures, not intractable, with status epilepticus (principal); I50.23 Acute on chronic systolic (congestive) heart failure; I69.954 Hemiplegia and hemiparesis following unspecified cerebrovascular disease affecting left non-dominant side; I48.92 Unspecified atrial flutter; I08.1 Rheumatic disorders of both mitral and tricuspid valves; R18.8 Other ascites; I13.0 Hypertensive heart and chronic kidney disease with heart failure and stage 1 through stage 4 chronic kidney disease, or unspecified chronic kidney disease; I25.10 Atherosclerotic heart disease of native coronary artery without angina pectoris; I25.2 Old myocardial infarction; Z90.49 Acquired absence of other specified parts of digestive tract; Z79.01 Long term (current) use of anticoagulants; Z79.82 Long term (current) use of aspirin; Z88.0 Allergy status to penicillin; I69.920 Aphasia following unspecified cerebrovascular disease; M62.3 Immobility syndrome (paraplegic); E78.5 Hyperlipidemia, unspecified; M10.00 Idiopathic gout, unspecified site; N18.9 Chronic kidney disease, unspecified; I25.5 Ischemic cardiomyopathy; I48.0 Paroxysmal atrial fibrillation; Z95.810 Presence of automatic (implantable) cardiac defibrillator; D64.89 Other specified anemias; I69.991 Dysphagia following unspecified cerebrovascular disease; R13.10 Dysphagia, unspecified; Z66 Do not resuscitate
CPT/HCPCS: 36415; 36600; 51701; 70450; 71010; 71250; 74176; 80048; 80053; 80076; 80162; 80307; 81003; 82042; 82550; 82803; 82945; 82947; 83735; 83880; 84157; 84484; 85025; 85610; 85730; 87040; 87070; 87086; 87205; 89051; 92610; 93005; 94760; 94761; 96365; 96375; 99291; C9113; C9254; G8996-GN; G8997-GN; G8998-GN; J1160; J1250; J1650; J1953; J2250; J3475; J3480

== ENCOUNTER 2017-03-31 00:54 | Emergency (ER) | payer BC ==
[~2017-03-31 00:54] MED LIST changes: +COUMADIN PO; +COUMADIN3 MG PO; +KEPPRA100 MG/ML PO; +LANOXIN125 MCG PO; +LIPITOR80 MG PO; +MELATIN3 MG PO; +METOPROLOL TAR25 MG PO; +MULTI VITAMIN1 EACH PO
[2017-03-31 01:38] LABS: BASOPHIL# 0.1 X10e3 (0-0.3); BASOPHIL% 1.2 % (0-2.5); EOSINOPHIL# 0.1 X10e3 (0-0.7); EOSINOPHIL% 1.6 % (0.0-7.0); HEMOGLOBIN 15.7 gm/dL (13.0-16.0); LYMPHOCYTE# 1.3 X10e3 (1.0-3.5); LYMPHOCYTE% 16.1 % (17.0-45.0); MEAN CELL VOLUME 79.1 FL (83-96); MEAN CORPUSCULAR HEMOGLOBIN 25.3 PG (28-34); MEAN PLATELET VOLUME 9.9 FL (6.5-11.5); MONOCYTE# 0.8 X10e3 (0-1.0); MONOCYTE% 10.1 % (3.0-12.0); NEUTROPHIL# 5.7 X10e3 (1.5-7.1); PLATELET COUNT 177 X10e3 (140-420); WHITE BLOOD COUNT 8.1 X10e3 (4.0-10.5)
[2017-03-31 01:39] LABS: DIFF IND NO
[2017-03-31 01:54] LABS: INR 2.6; PARTIAL THROMBOPLASTIN TIME 34.2 SECONDS (23.5-31.3)
[2017-03-31 01:57] LABS: PROTHROMBIN TIME (PATIENT) 28.1 SECONDS (9.6-11.5)
[2017-03-31 01:59] LABS: ALBUMIN SERUM 3.9 g/dL (3.5-5.0); BILIRUBIN, DIRECT 0.5 mg/dL (0.0-0.2); BILIRUBIN,INDIRECT 1.1 mg/dL (0.0-0.9); BILIRUBIN,TOTAL 1.6 mg/dL (0.2-2.0); BUN/CREATININE RATIO 38.88; CALCIUM SERUM 9.2 mg/dL (8.4-10.2); CREATININE SERUM 0.9 mg/dL (0.6-1.4); GLOM FILT RATE Estimated 92.5 mL/min (>60); POTASSIUM 4.1 mmol/L (3.5-5.1); PROTEIN TOTAL SERUM 7.6 g/dL (6.0-8.3)
[2017-03-31] MEDS ORDERED: ALDACTONE25 MG PO (02:43)
[2017-03-31] MEDS ORDERED: A THRU Z ADVAN1 EAC1 PO (02:43)
[2017-03-31] MEDS ORDERED: ASPIRIN81 MG PO (02:44)
[2017-03-31] MEDS ORDERED: ZYLOPRIM100 MG PO (02:44)
[2017-03-31] MEDS ORDERED: COUMADIN4 MG PO (02:45)
[2017-03-31] MEDS ORDERED: BUMEX2 MG PO (02:45)
[2017-03-31] MEDS ORDERED: DIGITEK125 MC1 PO (02:46)
[2017-03-31] MEDS ORDERED: KEPPRA100 MG/ML PO (02:46)
[2017-03-31] MEDS ORDERED: LISINOPRIL10 MG PO (02:47)
[2017-03-31] MEDS ORDERED: LIPITOR80 MG PO (02:47)
[2017-03-31] MEDS ORDERED: MELATIN3 MG PO (02:47)
[2017-03-31] MEDS ORDERED: VIMPAT100 MG PO (02:48)
[2017-03-31] MEDS ORDERED: PROTONIX PO (02:48)
[2017-03-31] MEDS ORDERED: ZINC OXIDE TOP (02:49)
== END 2017-03-31 04:14 | disposition home or self-care (01) ==
LOC: CED 00:54
DX: E87.1 Hypo-osmolality and hyponatremia (principal); I48.91 Unspecified atrial fibrillation; I11.0 Hypertensive heart disease with heart failure; I50.9 Heart failure, unspecified; I25.2 Old myocardial infarction; Z86.73 Personal history of transient ischemic attack (TIA), and cerebral infarction without residual deficits; R47.01 Aphasia; Z90.49 Acquired absence of other specified parts of digestive tract; Z88.0 Allergy status to penicillin; Z79.82 Long term (current) use of aspirin; Z79.899 Other long term (current) drug therapy
CPT/HCPCS: 36415; 80048; 80076; 82947; 85025; 85610; 85730; 99283